=== PATIENT | female | born 1960 | race American Indian/Alaskan Native ===

== ENCOUNTER 2021-11-20 09:43 | Outpatient (CLI) | payer OTHER ==
--- NOTE | 2021-11-20 11:25 | XRay Report ---
Left knee 2 views INDICATION: Knee pain FINDINGS: Mild tricompartmental degenerative change with joint space narrowing in the medial compartm ent and patellofemoral joint. No acute fracture dislocation. Mild soft tissue swelling anteriorly. So me calcifications seen along the distal quadriceps tendon at the superior pole attachment Signer Name: Dioni Campbell MD Signed: 11/20/2021 11:21 AM Workstation Name: [id number]
--- NOTE | 2021-11-20 11:44 | XRay Report ---
CERVICAL SPINE 3 VIEWS INDICATION: Neck pain. COMPARISON: None. IMPRESSION: There is mild reversal of the normal cervical lordosis. There is 3 mm anterolisthesis of C3 with respect to C4 and C4 with respect to C5. 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 The remaining levels demonstrate mild degenerative changes. No acute osseous or soft tissue abnormality. Signer Name: Stephen Mason Jr, MD Signed: 11/20/2021 11:39 AM Workstation Name: [id number]
--- NOTE | 2021-11-20 11:46 | XRay Report ---
LUMBOSACRAL SPINE 3 VIEWS INDICATION: BACK PAIN. COMPARISON: None. IMPRESSION: Normal alignment. Mild discogenic DJD is present at all levels. There are mild symmetri c degenerative changes at the SI joints. No acute osseous or soft tissue abnormality. Signer Name: Stephen Mason Jr, MD Signed: 11/20/2021 11:41 AM Workstation Name: [id number]
== END 2021-11-20 09:44 | disposition home or self-care (01) ==
LOC: XRAY 09:43
PROVIDERS: ATTEND Internal Medicine
DX: M17.12 Unilateral primary osteoarthritis, left knee (principal); M47.817 Spondylosis without myelopathy or radiculopathy, lumbosacral region; M47.898 Other spondylosis, sacral and sacrococcygeal region; M47.812 Spondylosis without myelopathy or radiculopathy, cervical region
CPT/HCPCS: 72040; 72100